=== PATIENT | male | born 1965 | race Caucasian/White ===

== ENCOUNTER → 2018-01-24 | Outpatient (CLI) | END | disposition home or self-care (01) ==

== ENCOUNTER → 2019-01-31 | Outpatient (CLI) | payer BC | END | disposition home or self-care (01) | LOC: EEVIPCON 06:57 → RAD 06:57 | PROVIDERS: ATTEND Internal Medicine | DX: M54.31 Sciatica, right side (principal); R20.2 Paresthesia of skin | CPT/HCPCS: 72040; 72100 ==